=== PATIENT | female | born 1960 | race Caucasian/White ===

== ENCOUNTER → 2020-08-23 | Outpatient (CLI) | payer OTHER | LOC: LAB 18:33 | DX: Z48.817 Encounter for surgical aftercare following surgery on the skin and subcutaneous tissue (principal); D48.5 Neoplasm of uncertain behavior of skin; L57.0 Actinic keratosis; L08.9 Local infection of the skin and subcutaneous tissue, unspecified; L24.4 Irritant contact dermatitis due to drugs in contact with skin; L81.4 Other melanin hyperpigmentation; Z48.02 Encounter for removal of sutures | CPT/HCPCS: 87070; 87106; 87205 ==

== ENCOUNTER → 2021-04-17 | Outpatient (CLI) | payer OTHER | END | disposition home or self-care (01) | LOC: LAB SHORT 16:45 → LAB 16:45 | DX: J36 Peritonsillar abscess (principal) | CPT/HCPCS: 87081 ==

== ENCOUNTER → 2023-10-24 | Outpatient (CLI) | payer MEDICARE, OTHER | LOC: LAB SHORT 12:35 → PLD 12:35 | DX: D04.61 Carcinoma in situ of skin of right upper limb, including shoulder (principal) | CPT/HCPCS: 88305 ==

== ENCOUNTER 2024-10-05 10:13 | Day surgery (SDC) | payer MEDICARE ==
[2024-10-05] VITALS (17 sets, daily range): BP systolic 94–132; BP diastolic 64–83
[~2024-10-05] VITALS: Ht 175.3 cm; Wt 107.9 kg
[~2024-10-05 10:13] MED LIST: Acetaminophen 500 MG Tab PO SCH; CELE100 PO; CeFAZolin Sodium 2,000 MG in NS 100 ML IV SCH; Chlorhexidine Mouth Care 15 ML UDC MT SCH; Clindamycin 900mg in D5W 50ML 50 ML IV SCH; LATA.005SO BOTHEYES; LISINOPRIL-HCT1 EAC1 PO; LYRICA PO; Lactated Ringer's 1,000 ML IV SCH; OXAYDO5 M1 PO; PREG150 PO; Ropivacaine 0.5% HCl/Pf 123.125 MG,EPINEPHrine HCL 0.25 MG,Ketorolac Tromethamine 15 MG... INFIL SCH; Tranexamic Acid 1,000 MG in NS 100 ML IV SCH; XARELTO20 MG PO
[2024-10-05] MEDS ORDERED: DiphenhydrAMINE HCL 25 MG Cap PO PRN (11:35)
[2024-10-05] MEDS ORDERED: Magnesium Hydroxide Conc 10 ML UDC PO PRN (11:40)
[2024-10-05] MEDS ORDERED: Metoclopramide HCl 5MG / ML 2ML Vial IV PRN (11:40)
[2024-10-05] MEDS ORDERED: HYDROmorphone HCl/Pf 1MG SYR IV PRN (11:40)
[2024-10-05] MEDS ORDERED: Ondansetron HCl 2 MG / ML 2ML Vial IV PRN (11:40)
[2024-10-05] MEDS ORDERED: FLU VACC TS2024-25(6MOS UP)/PF 45 MCG/0.5 ML SYRINGE IM SCH (11:40)
[2024-10-05] MEDS ORDERED: Lactated Ringer's 1,000 ML IV SCH (11:40)
[2024-10-05] MEDS ORDERED: OxyCODONE HCL 5 MG TAB PO PRN ×2 (11:45)
[2024-10-05] MEDS ORDERED: Promethazine HCl 25 MG Tab PO PRN (11:45)
[2024-10-05] MEDS ORDERED: Prochlorperazine Edisylate 10 mg Vial IV PRN (11:45)
[2024-10-05] MEDS ORDERED: Midazolam HCl 1MG / ML 2ML Vial ONE (11:50)
[2024-10-05] MEDS ORDERED: Bupivacaine 0.5% HCl 5 MG/ML 30MLVIAL ONE (11:50)
[2024-10-05] MEDS ORDERED: Ondansetron HCl 2 MG / ML 2ML Vial ONE (11:51)
[2024-10-05] MEDS ORDERED: Ketorolac Tromethamine 30mg Vial ONE (11:51)
[2024-10-05] MEDS ORDERED: Dexamethasone Sod Phos 10 MG/ML 1ML VIAL ONE (11:51)
[2024-10-05] MEDS ORDERED: OxyCODONE HCL 10 MG TABCR PO SCH (12:05)
[2024-10-05] MEDS ORDERED: Bisacodyl 10 MG Supp PR PRN (12:20)
[2024-10-05] MEDS ORDERED: propofoL 20 ML IV ONE (12:37)
[2024-10-05] MEDS ORDERED: FentaNYL Citrate 50 MCG/ML 5 ML Injection ONE (12:49)
[2024-10-05] MEDS ORDERED: FentaNYL Citrate 50 MCG/ML 2 ML Injection ONE ×3 (14:05→15:56)
--- NOTE | 2024-10-05 14:11 | NUR ---
10/05/24 1411 Tia Ly NOTED SMALL SKIN TEAR TO PTS RIGHT GROIN. DR MANNING AWARE
[2024-10-05] MEDS ORDERED: Rocuronium Bromide 10 MG/ML 5ML Injection IV ONE (14:29)
[2024-10-05] MEDS ORDERED: Sugammadex Sodium 200 MG/2ML SDV (100 MG/ML) ONE (14:32)
[2024-10-05] MEDS ORDERED: Acetaminophen 500 MG Tab PO SCH (16:00)
--- NOTE | 2024-10-05 16:30 | NUR ---
ARRIVAL TO SURGICAL UNIT VIA HOSPITAL BED, ALERT & PLEASANT. ASSESSMENT CHARTED. DENIES N/V. SNACKS & DRINKS GIVEN. IVF INFUSING DESPITE EATING & DRINKING WELL DUE TO BP.
[2024-10-05] MEDS ORDERED: Ketorolac Tromethamine 15mg Vial IV SCH (18:00)
[2024-10-05] MEDS ORDERED: Docusate Sodium 100 MG Cap PO SCH (21:00)
[2024-10-05] MEDS ORDERED: Clindamycin 900mg in D5W 50ML 50 ML IV SCH (21:00)
[2024-10-05] MEDS ORDERED: Latanoprost 0.005% Opth Soln 2.5 ML BOTHEYES SCH (21:00)
[2024-10-06] VITALS: BP 99/65
[2024-10-06 04:39] VITALS: BP 101/72
--- NOTE | 2024-10-06 04:40 | NUR ---
SHIFT SUMMARY POD 1 RIGHT TOTAL HIP, PRINEO DRESSING CDI. POLAR PACK TO RIGHT HIP NAILA, WITH ICE REFILL PRN. PAIN MANAGED PER EMAR. PLEASANT AND COOPERATIVE WITH CARE. ON RA, DENIES. NAILA PO INTAKE, DENIES N/V. UP IN ROOM WITH 1-2 PERSON SBA, FWW, AND GB. ABX INFUSED PER ORDERS. PLAN TO BE UP IN CHAIR FOR BREAKFAST, WORK WITH THERAPY AND D/C HOME TODAY. PT CURRENTLY RESTING IN BED WITH EYES CLOSED, CALL LIGHT IN REACH, AND RESPIRATIONS EVEN AND UNLABORED. PLAN TO GIVE REPORT TO ONCOMING RN.
[2024-10-06 04:59] LABS: BASOPHILS ABSOLUTE AUTO 0.03 K/mm3 (0.00-0.23); BASOPHILS PERCENT AUTO 0 % (0-2); EOSINOPHILS PERCENT AUTO 0 % (0-6); Hematocrit 34.5 % (33.0-51.0); Hemoglobin 11.3 g/dL (11.5-16.0); IMMATURE GRAN ABSOLUTE AUTO 0.13 K/mm3 (0.00-0.10); IMMATURE GRAN PERCENT AUTO 1 % (0-1); LYMPHOCYTES ABSOLUTE AUTO 1.03 K/mm3 (0.84-5.20); LYMPHOCYTES PERCENT AUTO 5 % (21-46); MONOCYTES ABSOLUTE AUTO 0.95 K/mm3 (0.16-1.47); MONOCYTES PERCENT AUTO 4 % (4-13); Mean Corpuscular HGB 29.7 pg (26.0-34.0); Mean Corpuscular HGB Conc 32.8 g/dL (31.5-36.5); Mean Corpuscular Volume 91 fL (80-100); Mean Platelet Volume 9.5 fL (9.1-12.4); NEUTROPHILS ABSOLUTE AUTO 19.91 K/mm3 (1.96-9.15); NEUTROPHILS PERCENT AUTO 90 % (41-73); Platelet Count 318 K/mm3 (150-400); RDW Coefficient Variation 13.6 % (11.7-14.2); RDW Standard Deviation 45.4 fL (35.1-46.3); White Blood Cell Count 22.05 K/mm3 (4.00-11.30)
[2024-10-06 05:40] LABS: Bun/Creatinine Ratio 27.1 (12.0-20.0); Creatinine, Blood 0.55 mg/dL (0.40-1.00); Magnesium, Blood 1.8 mg/dL (1.6-2.4); Potassium, Blood 3.9 mmol/L (3.5-5.5)
[2024-10-06 07:33] VITALS: BP 99/63
[2024-10-06] MEDS ORDERED: ACET500 PO (08:01)
[2024-10-06] MEDS ORDERED: ASPI81CH PO (08:01)
[2024-10-06] MEDS ORDERED: OXYC5 PO (08:02)
[2024-10-06] MEDS ORDERED: HydroCHLOROthiazide 25 mg Tab PO SCH (09:00)
[2024-10-06] MEDS ORDERED: Aspirin 81 MG Chew PO SCH (09:00)
[2024-10-06] MEDS ORDERED: Lisinopril 20 MG Tab PO SCH (09:00)
--- NOTE | 2024-10-06 10:47 | NUR ---
DISCHARGE PT HAS CLEARED THERAPY. PAIN WELL CONTROLLED. EATING, DRINKING, & VOIDING WELL. DRSGS, SCRIPT, & POLAR PACK SENT w/ PT. ESCORTED OUT VIA W/C.
== END 2024-10-06 10:47 | disposition home or self-care (01) ==
LOC: ORSCMMR 10:13 → ORD 11:30 → SURS 16:12 → ORSCMMR 10-06 10:47 → ORD 10-19 07:30
PROVIDERS: Orthopaedic Surgery
PROC: 0SR90JA Replacement of Right Hip Joint with Synthetic Substitute, Uncemented, Open Approach (ICD-10-PCS; principal; 2024-10-05 11:30)
DX: M16.11 Unilateral primary osteoarthritis, right hip (principal); I10 Essential (primary) hypertension; Z87.891 Personal history of nicotine dependence; J45.909 Unspecified asthma, uncomplicated; Z79.01 Long term (current) use of anticoagulants; Z79.899 Other long term (current) drug therapy; Z96.642 Presence of left artificial hip joint
CPT/HCPCS: 36415; 72170; 80048; 83735; 85025; 97110; 97116; 97162; A9270; C1776; J0171; J0735; J1100; J1885; J2250; J2405; J2704; J2795; J3010; J7120